=== PATIENT | male | born 1985 | race Caucasian/White ===

== ENCOUNTER 2018-11-11 21:16 | Emergency (ER) | payer OTHER ==
[2018-11-11 21:49] VITALS: BP 132/79; PULSE 87; RESP 18; TEMP 99
--- NOTE | 2018-11-11 22:27 | XR ---
EXAMINATION TYPE: XR knee complete RT DATE OF EXAM: 11/11/2018 COMPARISON: NONE HISTORY: Knee pain TECHNIQUE: 3 views FINDINGS: There is no fracture nor dislocation. Joint spaces are normal. There is no sign of joint ef fusion. IMPRESSION: Normal right knee.
[2018-11-11] MEDS ORDERED: traMADol 50 MG STARTER PACK 3 TAB BTL PO STA (22:58)
[2018-11-11] MEDS ORDERED: IBUPROFEN 600 MG STARTER PACK 4 TAB BTL PO STA (22:58)
--- NOTE | 2018-11-11 22:59 | ED ---
Lower Extremity Injury HPI - General Chief Complaint: Extremity Injury, Lower Stated Complaint: Fall, knee injury Time Seen by Provider: 11/11/18 22:06 Source: patient, family, RN notes reviewed, old records reviewed Mode of arrival: ambulatory Limitations: no limitations - History of Present Illness Initial Comments: 32-year-old male presents return today to plan of right knee pain. He felt a pop and twist, and has pain with ambulation. Symptoms started after he twisted his knee following up stairs. He's had previous left knee ACL tears with repair. Patient states that he has pain with any range of motion within the knee. - Related Data Home Medications Medication Instructions Recorded Confirmed ALPRAZolam [Xanax] 0.5 mg PO HS PRN 12/17/14 12/19/14 HYDROcodone/APAP 10-325MG [[place] 1 each PO Q4HR PRN 12/17/14 12/19/14 10] Zantac (Dose Ukn) 1 tab PO DIRECTED PRN 12/17/14 12/19/14 Previous Rx's Medication Instructions Recorded traMADol HCl [Ultram] 50 mg PO Q6H PRN #90 tab 12/19/14 Ibuprofen 600 mg PO TID #20 tablet 11/11/18 traMADol HCL [Ultram] 50 mg PO Q4HR PRN 3 Days #18 tab 11/11/18 Allergies Allergy/AdvReac Type Severity Reaction Status Date / Time No Known Allergies Allergy Verified 11/11/18 21:49 Review of Systems ROS Statement: Those systems with pertinent positive or pertinent negative responses have been documented in the HPI. ROS Other: All systems not noted in ROS Statement are negative. Past Medical History Past Medical History: GERD/Reflux, Osteoarthritis (OA) History of Any Multi-Drug Resistant Organisms: None Reported Past Surgical History: Adenoidectomy, Tonsillectomy Past Anesthesia/Blood Transfusion Reactions: No Reported Reaction Past Psychological History: No Psychological Hx Reported Smoking Status: Current every day smoker Past Alcohol Use History: Occasional Past Drug Use History: None Reported General Exam - General Exam Comments Initial Comments: 32-year-old male. Patient appears in moderate discomfort. General: Well appearing, well nourished, in no distress. Oriented x 3, normal mood and affect . Ambulating with pain and difficulty Skin: Good turgor, no rash, unusual bruising or prominent lesions Hair: Normal texture and distribution. Heart: No cardiomegaly or thrills; regular rate and rhythm, no murmur or gallop Lungs: Clear to auscultation and percussion Abdomen: Bowel sounds normal, no tenderness, organomegaly, masses, or hernia Back: Spine normal without deformity or tenderness, no CVA tenderness Musculoskeletal: Patient has swelling and pain with range of motion within the right knee. Very wax positive valgus and varus test. Normal dorsalis pedis pulse distally and normal sensation distally. Neurologic: CN 2-12 normal. Sensation to pain, touch, and proprioception normal. DTRs normal in upper and lower extremities. No pathologic reflexes. Psychiatric: Oriented X3, intact recent and remote memory, judgment and insight , normal mood and affect. Limitations: no limitations Course Vital Signs 11/11/18 21:45 Temperature 99 F Pulse Rate 87 Respiratory 18 Rate Blood Pressure 132/79 O2 Sat by Pulse 100 Oximetry Procedures - Orthopedic Splinting/Casting Injury #1 Side: right Lower Extremity Injury Location: knee Lower Extremity Immobilizer: knee immobilizer Other Orthopedic Equipment: crutches Medical Decision Making - Medical Decision Making 32-year-old male presents with right knee pain. [place] a pop and twist. Has had significant swelling and pain with any range of motion and ambulation. 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 Unable to perform his job with his condition of his knee. He has severe pain with flexion and extension. Positive valgus test. And very laxity on Migel's test. Concern for ACL tear. X-rays negative for acute process. Given anti-inflammatory medicine and a short course of pain medicine for the pain. Patient was given a knee immobilizer crutches. Written a note for work. - Radiology Data Radiology results: report reviewed Normal right knee x-ray Disposition Clinical Impression: Right knee sprain Disposition: HOME SELF-CARE Condition: Good Instructions: Knee Sprain (ED) Additional Instructions: Patient is to rest, ice, and elevate extremity. Follow-up with orthopedic. Return to emergency department if any alarming signs or symptoms occur. Prescriptions: Ibuprofen 600 mg PO TID #20 tablet traMADol HCL [Ultram] 50 mg PO Q4HR PRN 3 Days #18 tab PRN Reason: Pain Is patient prescribed a controlled substance at d/c from ED?: Yes When asked, does pt state using other controlled substances?: No If prescribed controlled substance>3 days was MAPS reviewed?: Prescribed <3 Days If opioid is for acute pain is fill amount 7 days or less?: Yes If Rx opioid, was Start Talking consent form obtained?: Yes Referrals: Og Garcia MD [Primary Care Provider] - 1-2 days Attila Bermudez MD [STAFF PHYSICIAN] - 1-2 days Randal Castillo MD [STAFF PHYSICIAN] - 1-2 days Time of Disposition: 22:57
== END 2018-11-11 23:14 | disposition home or self-care (01) ==
LOC: EC 21:16
DX: S83.91XA Sprain of unspecified site of right knee, initial encounter (principal); F17.200 Nicotine dependence, unspecified, uncomplicated; X50.1XXA Overexertion from prolonged static or awkward postures, initial encounter; Y92.009 Unspecified place in unspecified non-institutional (private) residence as the place of occurrence of the external cause
CPT/HCPCS: 73562; 99284; L1830

== ENCOUNTER → 2018-11-15 | Outpatient (CLI) | payer OTHER ==
--- NOTE | 2018-11-15 22:15 | MR ---
EXAMINATION TYPE: MR knee RT wo con DATE OF EXAM: 11/15/2018 COMPARISON: Right knee 11/11/2017 HISTORY: Rt knee pain x 5 days, twisting injury TECHNIQUE: Multiplanar, multisequence imaging of the right knee is performed without IV contrast. FINDINGS: MEDIAL MENISCUS: There is somewhat diffuse increased signal within the posterior horn of the medial m eniscus, linear increased signal extends to the articular surface consistent with tear which extends towards the root anchor. LATERAL MENISCUS: Some diffuse signal within the lateral meniscus may be degenerative CRUCIATE LIGAMENTS: Anterior cruciate ligament fibers are not seen to be intact. Posterior cruciate l igament shows abnormal thickening and increased signal compatible with probable partial tear or strai n COLLATERAL LIGAMENTS: The medial collateral ligament and lateral collateral ligament complex are inta ct. Increased signal at the origin of the popliteus tendon may be due to strain or partial tear EXTENSOR MECHANISM: Visualized quadriceps and patellar tendons are intact. EFFUSION: Suprapatellar joint effusion is present. POPLITEAL CYST: No popliteal/pham cyst. TRICOMPARTMENT SPACES: Maintained CARTILAGE: No significant chondromalacia. BONE MARROW SIGNAL: Abnormal marrow signal present within the proximal tibia posteriorly both in the medial and lateral aspect may be due to bone contusions or possibly microtrabecular fractures. OTHER: Diffuse subcutaneous edema changes present. IMPRESSION: Anterior cruciate ligament disruption, possible strain or partial tear the posterior cruciate ligamen t. Tear of the posterior horn the medial meniscus. Bone marrow signal changes as described. Additiona l findings above.
== END | disposition home or self-care (01) ==
LOC: RADMRIMAIN 19:58
PROVIDERS: ATTEND Orthopaedic Surgery
DX: S83.241A Other tear of medial meniscus, current injury, right knee, initial encounter (principal); S83.194A Other dislocation of right knee, initial encounter; M25.461 Effusion, right knee

== ENCOUNTER → 2019-03-13 | Day surgery (SDC) | payer OTHER ==
[2019-03-09 16:18] VITALS: BMI 31.1
[~2019-03-13] MED LIST: ACETAMINOPHEN TAB 500 MG TAB PO ONE; HYDROcodone/APAP 10-325MG 1 EACH TAB PO ONE; HYDROmorphone (PF) 1 MG/ML ONE; LABETALOL 5 MG/ML VIAL MDV ONE; LACTATED RINGERS 1,000 ML IV SCH; LIDOCAINE 1% 20 ML VIAL (10MG/ML) FOR IV START INTRADERMA ONE; LIDOCAINE 1% INJ 10MG/ML (20 ML MDV) ONE; MIDAZOLAM 2 MG/2 ML VIAL IV PRN; MIDAZOLAM 2 MG/2 ML VIAL ONE; ONDANSETRON 4 MG/2 ML VIAL IVP ONE; PROPOFOL 10 MG/ML 20 ML VIAL IV ONE; SCOPOLAMINE 1.5MG/72HR PATCH TRANSDERM ONE; SODIUM CHLORIDE 0.9% 100 ML BAG ONE; SUCCINYLCHOLINE CHLORIDE VIAL 200 MG/10 ML VIAL IV ONE; TRANEXAMIC ACID 1,000 MG in SODIUM CHLORIDE 0.9% 100 ML IVPB ONE; TRANEXAMIC ACID 1,000 MG/10 ML VIAL ONE; ceFAZolin 1,000 MG in SODIUM CHLORIDE 0.9% 1,000 ML IRRIGATION ONE; ceFAZolin IN SWFI 2 GM/20 ML SYRINGE IVP ONE; fentaNYL (PF) 50 MCG/ML 2 ML AMP IVP ONE; fentaNYL (PF) 50 MCG/ML 2 ML AMP ONE
--- NOTE | 2019-03-13 14:52 | P.OP ---
Date of Procedure: 03/13/19 Procedure(s) Performed: PREOPERATIVE DIAGNOSES: 1. Right knee anterior cruciate ligament tear; 2. Posterior horn medial meniscus tear, degenerative POSTOPERATIVE DIAGNOSES: 1. Right knee anterior cruciate ligament tear; 2. Posterior horn medial meniscus tear; 3. Midzone lateral meniscal tear PROCEDURES PERFORMED: 1. Right knee arthroscopically-assisted anterior cruciate ligament reconstruction with soft tissue allograft 2. Right knee arthroscopic partial medial meniscectomy (15%) and partial lateral meniscectomy (10%) ANESTHESIA: tattoo and body artist: Tiffanie Cervantes PA-C (assistance with: patient positioning, retraction, graft prep, camera operation, reconstruction, irrigation, closure, dressing) COMPLICATIONS: None ESTIMATED BLOOD LOSS: Less than 20 cc TOURNIQUET: 75 minutes DISPOSITION: To post-anesthesia care unit INDICATIONS: Jim is a 33 year old male with a history of right knee ACL tear. We have discussed different approaches to ACL reconstruction and the decision is for soft tissue allograft reconstruction with possible meniscal repair versus debridement. I have explained the details of this surgery thoroughly and also explained the potential risks and complications, including the relative risks of graft failure. Other risks are inclusive of, but not limited to: bleeding, infection, scarring, discomfort, blood vessel and nerve damage, stiffness, weakness, need for further surgery, failure to relieve symptoms, persistence or worsening of problems, , and other risks. The patient and parents are aware of these risks and agree to proceed with surgery. The consent form has been signed. PROCEDURE: After appropriate consent was obtained, the patient was taken to the operating room and placed supine on the operating table. General anesthesia was initiated. The knee was examined under anesthesia. Medial collateral, lateral collateral and posterior cruciate ligaments were all intact. There was positive pivot shift of 2+ and 4mm anterior translation with both Migel and anterior drawer. Full range of motion was noted without crepitus. No effusion or soft tissue swelling was noted. Prepping and draping of the left knee was performed in the usual sterile fashion using ChloraPrep. Care was taken that all pressure points were adequately padded. Leg mojica and pneumotourniquet were used. Time-out was called according to [employer] standards, confirming patient identity, surgical procedure, side, and antibiotic administration. Graft utilized was a pre-prepared soft tissue allograft designed for Graftlink fixation. The Graftlink devices were attached to the ends of the graft and adjusted for length. It was then attached to the adjustable sliding units on the prep station. The graft was then set to 20 pounds of tension on the graft prep board and covered with a sterile saline soaked gauze pad. During the preparation of the graft, arthroscopy commenced. The surgical portals were placed directly next to the patellar tendon medially and laterally. Camera and instruments were carefully inserted into the knee and arthroscopy was performed. The patellofemoral joint was normal. Hyaline cartilage was normal. No loose bodies in the medial or lateral gutters, quad tendon normal. No plica. Lateral compartment showed normal hyaline cartilage without defect. Meniscus showed a midzone central radial tear no larger than 4 mm in size. A shaver was used to remove the loose fragment of meniscus. No loose bodies were seen within the lateral compartment. Medial compartment was then examined. Medial hyaline cartilage of the femur and tibia were normal. Medial meniscus showed a stellate posterior horn meniscus tear with an unstable appearance. Approximately 15% of the meniscus was resected using a shaver and basket forceps. Meniscal remnant was probed and found to be stable.. The notch of the knee was then inspected. The patient had a complete tear of the ACL at the femoral attachment with a small [place] lesion. The remnant was debrided away with care to avoid injuring the PCL. The notch in this patient was somewhat narrow, and so it was expanded in the lateral direction with a skyler. Only 3 mm of bone was resected from the lateral portion of the notch, just enough to get the guide in.. The soft tissue on the lateral side of the notch was cleared as necessary using a shaver. Next, the femoral socket was created using the Arthrex flip cutter guide. The guide was adjusted through the anterolateral portal after careful measurement of the anterior to posterior condylar distance on the lateral notch. A spot approximately between 40 and 50% of this length was chosen and the guide was moved superiorly only as much as to allow for a 2.5 mm back wall. Incision was created on the lateral side of the thigh over the IT band and the guide was placed against the bone. Guide position was adjusted so that there was 20 of anterior elevation in the coronal plane of the femur and 60 in the sagittal plane. Drilling was then performed using the flip cutter drill pin into the knee at the appropriate location. Once the pin position was noted to be satisfactory, the guide was removed and the drill sleeve was tapped into the bone using a mallet. The flip cutter was then deployed and retro-drilling was performed to create a femoral socket of approximately [] mm. Debris was suctioned out using a shaver. Passing suture was then inserted into the knee joint and carried out through the anteromedial portal. The tibial tunnel was created by the following steps. The retro-cutter aiming guide for the tunnel was placed into the anteromedial portal and onto the cleared central footprint of the [place] ACL. The guide cylinder was placed securely on the tibial cortex. The tibial bone length was measured. The retro- cutter guide pin was then inserted into the tibia to emerge at the mid-posterior aspect of the [place] ACL footprint, approximately 5 mm from the PCL and just anterior to the posterior border of the anterior horn of the lateral meniscus. The pin was noted to be in excellent position. The retro-cutter was then deployed and reverse drilling was performed creating a tibial socket approximately 30 mm in length. No fracture was noted. The intraarticular debris was removed using a shaver. Graft passing suture was placed. The femoral portion of the GraftLink construct was then inserted into the knee joint, guided by the passing suture. The Endobutton was carried through the femoral cortex and flipped, engaging the cortex securely. Approximately 10 mm or so of the graft was then placed into the femoral socket, using the sutures of the Endobutton. In similar fashion, the graft passing suture was placed into the loop and brought out through the tibial tunnel. This brought the tibial ABS sutures along with it. Approximately 15 mm of graft was placed within the tibial tunnel at which point the adjustable button for the tibia was placed on the sutures. The femoral portion of the graft was completely deployed at this point and bottomed out nicely. The adjustable button was confirmed to be on the cortex of the tibia without interposed soft tissue and preliminary tensioning was performed at that point in full extension. No graft impingement was noted. The knee was then taken through range of motion cycling 10 times. There was no significant motion of the graft detected and the femoral and tibial fixation was noted to be solid. Further tightening of the sutures was performed in extension from the tibial side and the knee was cycled 10 more times with final tightening of the sutures at that point. Sutures were then tied together over the button. Knee was then taken through range of motion which was noted to be full. No graft impingement was noted at the roof or sides of the notch. Fluid was removed from the knee and testing was performed. Anterior drawer 0 mm and Migel 0 mm. Negative pivot shift. Tourniquet was deflated. Hemostasis was obtained using cautery and pressure. Graft passing sutures were removed or cut as necessary. Thorough irrigation using antibiotic solution was performed, and portals were closed with 4-0 Monocryl suture. Posterior medial incision for hamstring harvest was closed with 3-0 Vicryl suture in the subcutaneous tissue, followed by 4-0 Monocryl suture in running subcuticular fashion for the skin, followed by Dermabond. Tibial incision was closed with 4-0 Monocryl for the skin. Steri strips were applied. Sterile dressing and light compressive dressing was applied using Webril and PAWEL wrap. Knee immobilizer was applied. Patient tolerated the procedure well and taken to recovery room in stable condition. Sponge and needle counts were correct.
[2019-03-13] MEDS: HYDROmorphone 0.5 MG/0.5 ML SYRINGE IVP PRN ×2 (15:17→15:24)
[2019-03-13 15:21] VITALS: TEMP 97.8
[2019-03-13 16:12] VITALS: BP 136/74; PULSE 73; RESP 16
== END | disposition home or self-care (01) ==
LOC: OR 11:05
PROVIDERS: ATTEND Orthopaedic Surgery
DX: S83.511A Sprain of anterior cruciate ligament of right knee, initial encounter (principal); S83.241A Other tear of medial meniscus, current injury, right knee, initial encounter; S83.281A Other tear of lateral meniscus, current injury, right knee, initial encounter; X58.XXXA Exposure to other specified factors, initial encounter; K21.9 Gastro-esophageal reflux disease without esophagitis; F17.200 Nicotine dependence, unspecified, uncomplicated; Z79.899 Other long term (current) drug therapy; Z79.891 Long term (current) use of opiate analgesic
CPT/HCPCS: 29888; 29880; C1713 ×2; J2250; J0330; J2405; J0690 ×2; J2001; J3010; J1170 ×2; J2704

== ENCOUNTER 2020-05-23 16:34 | Emergency (ER) | payer OTHER ==
[2020-05-23 16:50] VITALS: BP 146/88; PULSE 109; RESP 18; TEMP 98.5
--- NOTE | 2020-05-23 17:30 | ED ---
General Adult HPI - General Chief complaint: Skin/Abscess/Foreign Body Stated complaint: infection lt hip Time Seen by Provider: 05/23/20 17:11 Source: patient, RN notes reviewed, old records reviewed Mode of arrival: ambulatory Limitations: no limitations - History of Present Illness Initial comments: 34-year-old male presenting with suspected infection in the left anterior thigh and hip region. Patient states he's had recurrent folliculitis and typically uses Hibiclens. He states that any rubbing will cause him to have either a folliculitis or small abscess. Over the past 2 days he's developed pain and swelling in the skin of the anterior left hip. There is no pain with range of motion. He did record a temperature of 99.9 at home. No vomiting. No abdominal pain. No cough or URI symptoms. - Related Data Home Medications Medication Instructions Recorded Confirmed HYDROcodone/APAP 10-325MG [[place] 1 each PO Q6H PRN 12/17/14 03/13/19 10] Omeprazole Magnesium [PriLOSEC OTC] 20 mg PO BID PRN 03/09/19 03/13/19 Previous Rx's Medication Instructions Recorded Cephalexin [Keflex] 500 mg PO Q6HR 10 Days #40 cap 05/23/20 Sulfamethox-Tmp 800-160Mg [Bactrim 1 tab PO Q12HR #28 tab 05/23/20 DS 800-160 mg] Allergies Allergy/AdvReac Type Severity Reaction Status Date / Time No Known Allergies Allergy Verified 05/23/20 16:47 Review of Systems ROS Statement: Those systems with pertinent positive or pertinent negative responses have been documented in the HPI. ROS Other: All systems not noted in ROS Statement are negative. Past Medical History Past Medical History: GERD/Reflux, Musculoskeletal Disorder, Osteoarthritis (OA) History of Any Multi-Drug Resistant Organisms: None Reported Past Surgical History: Adenoidectomy, Orthopedic Surgery, Tonsillectomy Additional Past Surgical History / Comment(s): arthroscopic left knee surg. w/AC L reconstruction 4 yrs. ago Past Anesthesia/Blood Transfusion Reactions: No Reported Reaction Past Psychological History: No Psychological Hx Reported Smoking Status: Current every day smoker Past Alcohol Use History: Rare Past Drug Use History: None Reported - Past Family History Mother Family Medical History: No Reported History General Exam Limitations: no limitations General appearance: alert, in no apparent distress Head exam: Present: atraumatic, normocephalic Eye exam: Present: normal appearance, PERRL, EOMI ENT exam: Present: normal exam Neck exam: Present: normal inspection. Absent: tenderness, meningismus Respiratory exam: Present: normal lung sounds bilaterally. Absent: respiratory distress, wheezes Cardiovascular Exam: Present: regular rate, normal rhythm GI/Abdominal exam: Present: soft. Absent: distended, tenderness Extremities exam: Present: other (Left anterior hip, there is approximately 10 cm irregular area of cellulitis surrounding a 1 cm folliculitis which has previously been drained. No drainable abscess at this time.) Course Vital Signs 05/23/20 16:47 Temperature 98.5 F Pulse Rate 109 H Respiratory 18 Rate Blood Pressure 146/88 O2 Sat by Pulse 98 Oximetry Procedures - Incision & Drainage Consent Obtained: verbal consent Site: lower extremity I&D Cleaning Method: Chloroprep Needle Aspiration Performed?: Yes Irrigation Performed?: No I&D Drainage Obtained: Blood Culture Obtained?: No Patient Tolerated Procedure: well Medical Decision Making - Medical Decision Making 34 yomale with a 1 cm folliculitis and surrounding cellulitis. Patient will be covered for MRSA. I did attempt a needle aspiration, there is no purulence in the area folliculitis. There is no drainable abscess. There is no induration. He is started on Keflex and Bactrim. These prescriptions are called into [facility] pharmacy in [place]. At the patient's request. He will start the antibiotics today. Disposition Clinical Impression: Folliculitis, Cellulitis Disposition: HOME SELF-CARE Condition: Good Instructions (If sedation given, give patient instructions): Cellulitis (ED), Folliculitis (ED) Additional Instructions: Prescription sent to [facility] in [place] please start these medications today. Prescriptions: Sulfamethox-Tmp 800-160Mg [Bactrim DS 800-160 mg] 1 tab PO Q12HR #28 tab Cephalexin [Keflex] 500 mg PO Q6HR 10 Days #40 cap Is patient prescribed a controlled substance at d/c from ED?: No Referrals: Og Garcia MD [Primary Care Provider] - 1-2 days Time of Disposition: 17:27
== END 2020-05-23 17:56 | disposition home or self-care (01) ==
LOC: EC 16:34
DX: L03.116 Cellulitis of left lower limb (principal); L73.9 Follicular disorder, unspecified; K21.9 Gastro-esophageal reflux disease without esophagitis; M19.90 Unspecified osteoarthritis, unspecified site; F17.200 Nicotine dependence, unspecified, uncomplicated; Z79.899 Other long term (current) drug therapy
CPT/HCPCS: 10160; 99283